=== PATIENT | female | born 1955 | race Caucasian/White ===

== ENCOUNTER 2022-04-23 12:28 | Emergency (ER) | payer MEDICARE, MEDICAID ==
[~2022-04-23] VITALS: Ht 160 cm; Wt 58.6 kg
[~2022-04-23 12:28] MED LIST: UNABLE TO OBTAIN
[2022-04-23 12:47] VITALS: BP 158/79
[2022-04-23 13:20] LABS: ALANINE AMINOTRANSFERASE 16 U/L (12-78); ALBUMIN 3.4 G/DL (3.4-5.0); ALBUMIN/GLOBULIN RATIO 0.9 (1.1-1.5); ALKALINE PHOSPHATASE 85 IU/L (46-116); ANION GAP 5 (8-16); ASPARTATE AMINO TRANSFERASE 14 U/L (10-37); BILIRUBIN,TOTAL 0.3 MG/DL (0.1-1.0); BLOOD UREA NITROGEN 26 MG/DL (7-18); BUN/CREATININE RATIO 22.6 (6.6-38.0); CALCIUM 8.9 MG/DL (8.5-10.1); CHLORIDE 102 MMOL/L (99-107); CREATININE 1.15 MG/DL (0.40-0.90); GLUCOSE 120 MG/DL (70-104); POTASSIUM 4.4 MMOL/L (3.5-5.1); SODIUM 140 MMOL/L (135-145); TOTAL PROTEIN 7.1 G/DL (6.4-8.2); eGFR 47 ML/MIN
[2022-04-23 13:31] LABS: BASOPHILS % (AUTO) 0.3 % (0-1); EOSINOPHILS # (AUTO) 0.1 X10'3 (0-0.9); HEMOGLOBIN 13.1 g/dl (12.0-16.0); LYMPHOCYTES # (AUTO) 1.2 X10'3 (1.1-4.8); LYMPHOCYTES % (AUTO) 16.8 % (21-51); MEAN CORPUSCULAR HEMOGLOBIN 29.4 PG (27.0-31.0); MEAN CORPUSCULAR HGB CONC 32.7 g/dL (33.0-36.5); MEAN CORPUSCULAR VOLUME 89.9 FL (78-98); MEAN PLATELET VOLUME 11.5 FL (7.4-10.4); MONOCYTES # (AUTO) 0.6 X10'3 (0-0.9); MONOCYTES % (AUTO) 8.7 % (2-12); NEUTROPHILS # (AUTO) 5.1 X10'3 (1.8-7.7); NEUTROPHILS % (AUTO) 72.2 % (42-75); PLATELET COUNT 161 X10'3 (140-440); RED BLOOD COUNT 4.45 X10'6 (4.20-5.60); RED CELL DISTRIBUTION WIDTH 14.7 % (11.5-14.5); WHITE BLOOD COUNT 7.1 X10'3 (4.5-11.0)
== END 2022-04-23 13:46 | disposition home or self-care (01) ==
LOC: ER 12:29
DX: I10 Essential (primary) hypertension (principal); J44.9 Chronic obstructive pulmonary disease, unspecified; M54.50 Low back pain, unspecified; F12.90 Cannabis use, unspecified, uncomplicated
CPT/HCPCS: 36415; 80053; 85025; 93005; 99284

== ENCOUNTER 2022-07-18 15:31 | Emergency (ER) | payer MEDICARE, MEDICAID ==
[~2022-07-18] VITALS: Ht 165.1 cm; Wt 59.1 kg
[2022-07-18 17:46] VITALS: BP 177/81
== END 2022-07-18 17:48 | disposition home or self-care (01) ==
LOC: ER 15:32
DX: I10 Essential (primary) hypertension (principal); I73.00 Raynaud's syndrome without gangrene; G89.29 Other chronic pain; J44.9 Chronic obstructive pulmonary disease, unspecified; F17.200 Nicotine dependence, unspecified, uncomplicated; F12.90 Cannabis use, unspecified, uncomplicated; Z90.49 Acquired absence of other specified parts of digestive tract; Z79.899 Other long term (current) drug therapy
CPT/HCPCS: 99281

== ENCOUNTER 2023-02-05 11:57 | Outpatient (CLI) | payer MEDICARE, MEDICAID | END 2023-02-05 23:59 | disposition home or self-care (01) | LOC: RAD 11:57 | PROVIDERS: ATTEND Physician Assistant | DX: F11.20 Opioid dependence, uncomplicated (principal); R00.1 Bradycardia, unspecified | CPT/HCPCS: 93005 ==

== ENCOUNTER 2023-02-09 19:59 | Inpatient (IN) | payer MEDICARE, MEDICAID ==
[~2023-02-09] VITALS: Ht 165.1 cm; Wt 46.8 kg
[2023-02-09] MEDS ORDERED: acetaminophen 325mg tablet PO ONE (20:40)
[2023-02-09] MEDS ORDERED: piperacillin/tazo 3.375gm/50ml 50 ML IV ONE (22:00)
[2023-02-09 22:01] LABS: BASOPHILS % (AUTO) 0.4 % (0-1); EOSINOPHILS % (AUTO) 0.3 % (0-6); HEMOGLOBIN 10.6 g/dl (12.0-16.0); LYMPHOCYTES # (AUTO) 0.5 X10'3 (1.1-4.8); LYMPHOCYTES % (AUTO) 4.2 % (21-51); MEAN CORPUSCULAR HEMOGLOBIN 28.9 PG (27.0-31.0); MEAN CORPUSCULAR HGB CONC 31.9 g/dL (33.0-36.5); MEAN CORPUSCULAR VOLUME 90.6 FL (78-98); MEAN PLATELET VOLUME 11.4 FL (7.4-10.4); MONOCYTES # (AUTO) 0.4 X10'3 (0-0.9); MONOCYTES % (AUTO) 3.4 % (2-12); NEUTROPHILS # (AUTO) 11.5 X10'3 (1.8-7.7); NEUTROPHILS % (AUTO) 91.7 % (42-75); PLATELET COUNT 182 X10'3 (140-440); RED BLOOD COUNT 3.65 X10'6 (4.20-5.60); RED CELL DISTRIBUTION WIDTH 15.6 % (11.5-14.5); WHITE BLOOD COUNT 12.5 X10'3 (4.5-11.0)
[2023-02-09 22:18] LABS: ALANINE AMINOTRANSFERASE 17 U/L (12-78); ALBUMIN/GLOBULIN RATIO 0.8 (1.1-1.5); ALKALINE PHOSPHATASE 66 IU/L (46-116); ANION GAP 6 (8-16); ASPARTATE AMINO TRANSFERASE 19 U/L (10-37); BILIRUBIN,TOTAL 0.5 MG/DL (0.1-1.0); BLOOD UREA NITROGEN 20 MG/DL (7-18); BUN/CREATININE RATIO 17.5 (10.0-20.0); CALCIUM 8.7 MG/DL (8.5-10.1); CHLORIDE 104 MMOL/L (99-107); CREATININE 1.14 MG/DL (0.40-0.90); GLUCOSE 97 MG/DL (70-104); POTASSIUM 3.4 MMOL/L (3.5-5.1); SODIUM 141 MMOL/L (135-145); TOTAL CARBON DIOXIDE 30.8 MMOL/L (24-32); TOTAL PROTEIN 6.6 G/DL (6.4-8.2); eCRCL 36 ML/MIN; eGFR 48 ML/MIN
[2023-02-09 22:26] LABS: PRO BRAIN NATRIURETIC PEPTIDE 3629 PG/ML (0-125)
[2023-02-09 22:52] LABS: BILIRUBIN,URINE NEGATIVE (Neg); CLARITY,URINE CLOUDY (Clear); COLOR,URINE YELLOW (Yellow); GLUCOSE, URINE NEGATIVE (Neg); KETONES,URINE TRACE mg/dl (Neg); LEUKOCYTE ESTERASE ,URINE TRACE (Neg); NITRITES, URINE POSITIVE (Neg); OCCULT BLOOD,URINE TRACE-INTACT (Neg); PH,URINE 6.5 (4.8-8.0); PROTEIN,URINE NEGATIVE (Neg); UROBILINOGEN,URINE 0.2 E.U/dL (0.2-1.0)
[2023-02-09 22:57] LABS: UA COLLECTION TYPE STRAIGHT CATH
[2023-02-09 22:58] LABS: BACTERIA,URINE 4+ /HPF (Neg); SQUAMOUS EPITHELIAL CELL,UR FEW /LPF (FEW)
[2023-02-09 22:59] LABS: RBC,URINE 0-2 /HPF (0-2); WBC,URINE 30-50 /HPF (0-4)
[2023-02-09] MEDS ORDERED: aspirin 81mg tab.chew PO ONE (23:00)
[2023-02-09] MEDS ORDERED: LOSA1TAB36 PO (23:20)
[2023-02-09 23:27] LABS: URINE AMPHETAMINE SCREEN POSITIVE (Neg); URINE BARBITUATE SCREEN NEGATIVE (Neg); URINE BENZODIAZEPINES SCREEN NEGATIVE (Neg); URINE CANNABINOID SCREEN POSITIVE (Neg); URINE COCAINE SCREEN NEGATIVE (Neg); URINE METHADONE SCREEN POSITIVE (Neg); URINE OPIATE SCREEN NEGATIVE (Neg); URINE PHENCYCLIDINE SCREEN NEGATIVE (Neg)
[2023-02-10] MEDS ORDERED: acetaminophen 325mg tablet PO PRN (00:50)
[2023-02-10] MEDS ORDERED: magnesium Cl slow-release 64mg tablet PO PRN (00:50)
[2023-02-10] MEDS ORDERED: magnesium hydroxide 30ml (MOM) UD suspension PO PRN (00:50)
[2023-02-10] MEDS ORDERED: potassium Cl 40MEQ/1/2NS 520ml 520 ML IV PRN (00:50)
[2023-02-10] MEDS ORDERED: magnesium 2GM in 50ml NS 50 ML IV PRN (00:50)
[2023-02-10] MEDS ORDERED: ondansetron/PF 4mg/2ml inj IV PRN (00:50)
[2023-02-10] MEDS ORDERED: magnesium 4gm in 100ml NS 100 ML IV PRN (00:50)
[2023-02-10] MEDS ORDERED: PERFLUTREN PROTEIN-A MICROSPHR (Optison) 0.22 MG/ML 3ML VIAL IV ONE (00:50)
[2023-02-10] MEDS ORDERED: mag hydrox/Alum hydrox/simeth 30ml oral suspension PO PRN (00:50)
[2023-02-10] MEDS ORDERED: potassium Cl 20 mEq SR tablet PO PRN ×2 (00:50)
[2023-02-10] MEDS ORDERED: vancomycin/NS 1 GM ADD-VANTAGE 250 ML X 1 DOSE IV SCH (01:13)
[2023-02-10] MEDS: normal saline 1000ml 1,000 ML IV SCH ×3 (02:31→20:42)
--- NOTE | 2023-02-10 02:32 | NUR ---
OPTISON NOT ADMINISTERED IN ER
[2023-02-10] MEDS: HYDROchlorothiazide 12.5mg capsule PO SCH (07:01)
[2023-02-10] MEDS: heparin, porcine 5000 units/ml vial SQ SCH ×2 (07:03→20:43)
[2023-02-10] MEDS: docusate sod 100mg capsule PO SCH ×2 (07:03→20:00)
[2023-02-10] MEDS: HYDROcodone/acetaminophen 5mg/325mg tablet PO PRN ×3 (07:04→21:43)
[2023-02-10] MEDS: CefTRIAXone/D5W-Rocephin 1gm 50 ML IV SCH (07:05)
[2023-02-10] MEDS: K and/or MAG REPLACEMENT MC SCH ×2 (07:06→20:44)
--- NOTE | 2023-02-10 07:06 | NUR ---
Patient refused 0800 colace after scanning medication
[2023-02-10 07:44] LABS: MAGNESIUM 1.5 MG/DL (1.5-2.4); POTASSIUM 3.1 MMOL/L (3.5-5.1); THYROID STIMULATING HORMONE 0.43 ulU/ml (0.34-4.50)
[2023-02-10] MEDS: losartan 50mg tablet PO SCH (07:57)
--- NOTE | 2023-02-10 10:03 | NUR ---
Received order for consult. Went to meet with patient and patient with woundcare. I will follow back up.
--- NOTE | 2023-02-10 10:56 | NUR ---
Page Dr. Linares for home dose of methadone 35mg
[2023-02-10] MEDS ORDERED: methadone 5mg tablet PO ONE (11:00)
[2023-02-10] MEDS ORDERED: methadone 10mg tablet PO ONE (11:00)
--- NOTE | 2023-02-10 14:47 | NUR ---
PRESSURE ULCER EDUCATION: DEFINITION: A pressure ulcer is an area of skin that breaks down when you stay in one position too long. The constant pressure against the skin reduces the blood flow to that area and the affected tissue dies. CAUSES: "Being bedridden or in a wheelchair "Fragile skin "Having a chronic condition, such as diabetes or vascular disease "Inability to move certain parts of your body without assistance "Older age "Incontinence of urine or stool SYMPTOMS: "A reddened area that DOES NOT turn white when pressed on - this can be the beginning of a pressure ulcer "A blister, deep sore or a crater - these can be advanced pressure ulcers FIRST AID: "Relieve the pressure on this area "Keep the area clean and dry "Call your primary doctor if you see any of the above symptoms "DO NOT massage the area "DO NOT use a donut shaped or ring shaped pillow- these actually interfere with the blood flow and cause complications PREVENTION: "Check for pressure ulcers everyday "Change position at least every two hours to relieve pressure "Use items that help relieve pressure- pillows, sheepskin, foam padding, and powders. "Keep skin clean and dry "Eat healthy well balanced meals "Exercise daily IF YOU SEE ANY OF THESE SYMPTOMS WHILE IN THE HOSPITAL - TELL YOUR NURSE IMMEDIATELY. IF YOU SEE ANY OF THESE SYMPTOMS WHILE AT HOME OR HAVE ANY QUESTIONS OR CONCERNS ABOUT PRESSURE ULCERS - CALL YOUR PRIMARY DOCTOR IMMEDIATELY. Addendum: 02/10/23 at 1447 by Jennifer Maravilla LVN Amended: Links added.
[2023-02-10 17:00] VITALS: RESP 14
[2023-02-10 18:30] VITALS: BP 140/50; PULSE 61; RESP 18; TEMP 97.1; O2SAT 92
--- NOTE | 2023-02-10 18:36 | NUR ---
Patient in room PCU 3014. I have received report from Jailyn and had the opportunity to ask questions and assume patient care.
--- NOTE | 2023-02-10 18:37 | NUR ---
Problems reprioritized. Patient report given, questions answered & plan of care reviewed with KEN De.
[2023-02-10 20:00] VITALS: RESP 14; O2SAT 98
[2023-02-10 21:47] VITALS: BP 141/65; PULSE 63; RESP 16; TEMP 98.3; O2SAT 96
[2023-02-11] VITALS (8 sets, daily range): BP systolic 106–167; BP diastolic 56–79; PULSE 51–66; RESP 16–20; TEMP 96.9–98.3; O2SAT 95–99
[2023-02-11] MEDS: HYDROcodone/acetaminophen 5mg/325mg tablet PO PRN ×4 (01:50→20:52)
[2023-02-11] MEDS ORDERED: VANCOMYCIN 750MG IV in NS 250 ML IV SCH (02:00)
[2023-02-11 06:20] LABS: BASOPHILS % (AUTO) 0.2 % (0-1); EOSINOPHILS # (AUTO) 0.2 X10'3 (0-0.9); EOSINOPHILS % (AUTO) 1.8 % (0-6); HEMATOCRIT 32.2 % (35.0-45.0); HEMOGLOBIN 10.9 g/dl (12.0-16.0); LYMPHOCYTES # (AUTO) 1.1 X10'3 (1.1-4.8); LYMPHOCYTES % (AUTO) 12.7 % (21-51); MEAN CORPUSCULAR HEMOGLOBIN 30.2 PG (27.0-31.0); MEAN CORPUSCULAR HGB CONC 33.7 g/dL (33.0-36.5); MEAN CORPUSCULAR VOLUME 89.7 FL (78-98); MEAN PLATELET VOLUME 12.2 FL (7.4-10.4); MONOCYTES # (AUTO) 0.5 X10'3 (0-0.9); MONOCYTES % (AUTO) 5.6 % (2-12); NEUTROPHILS # (AUTO) 6.7 X10'3 (1.8-7.7); NEUTROPHILS % (AUTO) 79.7 % (42-75); PLATELET COUNT 161 X10'3 (140-440); RED BLOOD COUNT 3.59 X10'6 (4.20-5.60); RED CELL DISTRIBUTION WIDTH 15.6 % (11.5-14.5); WHITE BLOOD COUNT 8.4 X10'3 (4.5-11.0)
--- NOTE | 2023-02-11 06:26 | NUR ---
Problems reprioritized. Patient report given, questions answered & plan of care reviewed with Dona.
[2023-02-11 06:29] LABS: ALBUMIN 2.5 G/DL (3.4-5.0); ALBUMIN/GLOBULIN RATIO 0.7 (1.1-1.5); ALKALINE PHOSPHATASE 62 IU/L (46-116); ANION GAP 6 (8-16); ASPARTATE AMINO TRANSFERASE 16 U/L (10-37); BILIRUBIN,TOTAL 0.3 MG/DL (0.1-1.0); BLOOD UREA NITROGEN 20 MG/DL (7-18); BUN/CREATININE RATIO 21.5 (10.0-20.0); CALCIUM 8.6 MG/DL (8.5-10.1); CHLORIDE 105 MMOL/L (99-107); CREATININE 0.93 MG/DL (0.40-0.90); GLUCOSE 101 MG/DL (70-104); MAGNESIUM 1.5 MG/DL (1.5-2.4); POTASSIUM 3.5 MMOL/L (3.5-5.1); SODIUM 138 MMOL/L (135-145); TOTAL CARBON DIOXIDE 26.8 MMOL/L (24-32); TOTAL PROTEIN 6.3 G/DL (6.4-8.2); eCRCL 44 ML/MIN; eGFR 60 ML/MIN
--- NOTE | 2023-02-11 06:46 | NUR ---
Patient in room PCU 3014. I have received report from Santino and had the opportunity to ask questions and assume patient care.
[2023-02-11 07:08] LABS: ALANINE AMINOTRANSFERASE 10 U/L (12-78)
--- NOTE | 2023-02-11 07:32 | NUR ---
Sent to PICC nurse -5588Y Lidya Rosenthal needs a new IV placed. Hard stick.
[2023-02-11] MEDS: losartan 50mg tablet PO SCH (07:36)
[2023-02-11] MEDS: heparin, porcine 5000 units/ml vial SQ SCH ×2 (07:38→20:53)
[2023-02-11] MEDS: HYDROchlorothiazide 12.5mg capsule PO SCH (07:39)
[2023-02-11] MEDS: docusate sod 100mg capsule PO SCH ×2 (07:40→20:00)
[2023-02-11] MEDS: K and/or MAG REPLACEMENT MC SCH ×2 (07:40→20:47)
--- NOTE | 2023-02-11 08:07 | NUR ---
Sent to Dr Araujo - 6062H Lidya Rosenthal Pt at [facility] for MAT and had a one time methadone dose 02/10 here. Can she have a dose today? Dona U [phone]
[2023-02-11 08:40] LABS: LARGE PLATELETS FEW; PLATELET ESTIMATE NORMAL
[2023-02-11] MEDS: methadone 10mg tablet PO SCH (09:29)
[2023-02-11] MEDS: methadone 5mg tablet PO SCH (09:30)
[2023-02-11 09:55] LABS: C-REACTIVE PROTEIN 11.45 MG/DL (0.0-0.5)
[2023-02-11] MEDS: normal saline 1000ml 1,000 ML IV SCH ×2 (11:00→16:35)
[2023-02-11] MEDS: CefTRIAXone/D5W-Rocephin 1gm 50 ML IV SCH (12:24)
--- NOTE | 2023-02-11 13:28 | NUR ---
PAGER ID: [phone] MESSAGE: [id number] Lidya Rosenthal Medical Record from [facility] is here. During her stay Jan 20 she tested pos for C-diff. Would you like a stool sample? Dona [facility] [phone]
[2023-02-11] MEDS ORDERED: ondansetron 4mg rapidly disintigrating tab PO PRN (13:40)
[2023-02-11] MEDS ORDERED: methadone 10mg tablet PO SCH (16:00)
[2023-02-11] MEDS ORDERED: methadone 5mg tablet PO SCH (16:00)
--- NOTE | 2023-02-11 18:16 | NUR ---
Problems reprioritized. Patient report given, questions answered & plan of care reviewed with
--- NOTE | 2023-02-11 18:45 | NUR ---
Patient in room PCU 3021. I have received report from Dona and had the opportunity to ask questions and assume patient care.
[2023-02-12] MEDS: HYDROcodone/acetaminophen 5mg/325mg tablet PO PRN ×2 (01:43→05:54)
[2023-02-12] MEDS: normal saline 1000ml 1,000 ML IV SCH (01:48)
[2023-02-12 01:49] VITALS: BP 149/86; PULSE 54; RESP 16; TEMP 97.7; O2SAT 97
[2023-02-12] MEDS ORDERED: vancomycin/NS 1 GM ADD-VANTAGE 250 ML IV SCH (02:00)
--- NOTE | 2023-02-12 06:21 | NUR ---
Problems reprioritized. Patient report given, questions answered & plan of care reviewed with
[2023-02-12 07:00] VITALS: BP 170/89; PULSE 60; RESP 16; TEMP 97.5; O2SAT 98
[2023-02-12] MEDS: heparin, porcine 5000 units/ml vial SQ SCH (07:24)
[2023-02-12] MEDS: HYDROchlorothiazide 12.5mg capsule PO SCH (07:24)
[2023-02-12] MEDS: losartan 50mg tablet PO SCH (07:25)
[2023-02-12] MEDS: methadone 5mg tablet PO SCH (07:26)
[2023-02-12] MEDS: methadone 10mg tablet PO SCH (07:26)
[2023-02-12] MEDS: docusate sod 100mg capsule PO SCH (07:27)
[2023-02-12] MEDS: K and/or MAG REPLACEMENT MC SCH (07:27)
[2023-02-12 07:34] LABS: RED CELL DISTRIBUTION WIDTH 15.5 % (11.5-14.5)
[2023-02-12 07:36] LABS: BASOPHILS % (AUTO) 0.5 % (0-1); EOSINOPHILS # (AUTO) 0.2 X10'3 (0-0.9); EOSINOPHILS % (AUTO) 3.8 % (0-6); HEMATOCRIT 39.3 % (35.0-45.0); LYMPHOCYTES # (AUTO) 1.4 X10'3 (1.1-4.8); LYMPHOCYTES % (AUTO) 21.1 % (21-51); MEAN CORPUSCULAR HGB CONC 33.1 g/dL (33.0-36.5); MEAN CORPUSCULAR VOLUME 90.7 FL (78-98); MEAN PLATELET VOLUME 11.3 FL (7.4-10.4); MONOCYTES # (AUTO) 0.4 X10'3 (0-0.9); MONOCYTES % (AUTO) 6.8 % (2-12); NEUTROPHILS # (AUTO) 4.5 X10'3 (1.8-7.7); NEUTROPHILS % (AUTO) 67.8 % (42-75); PLATELET COUNT 120 X10'3 (140-440); RED BLOOD COUNT 4.33 X10'6 (4.20-5.60); WHITE BLOOD COUNT 6.6 X10'3 (4.5-11.0)
[2023-02-12 08:00] VITALS: RESP 18; O2SAT 95
[2023-02-12 08:04] LABS: ALANINE AMINOTRANSFERASE 14 U/L (12-78); ALBUMIN/GLOBULIN RATIO 0.7 (1.1-1.5); ALKALINE PHOSPHATASE 70 IU/L (46-116); ANION GAP 12 (8-16); ASPARTATE AMINO TRANSFERASE 18 U/L (10-37); BILIRUBIN,TOTAL 0.2 MG/DL (0.1-1.0); BLOOD UREA NITROGEN 16 MG/DL (7-18); BUN/CREATININE RATIO 17.2 (10.0-20.0); CALCIUM 9.2 MG/DL (8.5-10.1); CHLORIDE 103 MMOL/L (99-107); CREATININE 0.93 MG/DL (0.40-0.90); GLUCOSE 76 MG/DL (70-104); MAGNESIUM 1.3 MG/DL (1.5-2.4); POTASSIUM 3.7 MMOL/L (3.5-5.1); SODIUM 140 MMOL/L (135-145); TOTAL CARBON DIOXIDE 25.3 MMOL/L (24-32); TOTAL PROTEIN 7.4 G/DL (6.4-8.2); eCRCL 44 ML/MIN; eGFR 60 ML/MIN
[2023-02-12] MEDS: CefTRIAXone/D5W-Rocephin 1gm 50 ML IV SCH (08:30)
[2023-02-12] MEDS ORDERED: FOSFOMYCIN TROMETHAMINE 3 GM PACKET PO ONE (10:30)
[2023-02-12] MEDS ORDERED: CEPH500C2 PO (11:15)
[2023-02-12] MEDS ORDERED: DOXY-243 PO (11:15)
[2023-02-12 11:30] VITALS: BP 132/58; PULSE 59; RESP 15; TEMP 98.2; O2SAT 95
--- NOTE | 2023-02-12 12:00 | NUR ---
Met with patient in regards to substance use and to see if patient was interested in resources for treatment options. Patient is currently going to [facility] and on Methadone. Patient has cut back on using, and will continue doing the program through [facility] to stop completely.
[2023-02-15] MEDS ORDERED: VANCOMYCIN LEVEL IV ONE (01:30)
== END 2023-02-12 15:49 | disposition home or self-care (01) | DRG 602 ==
LOC: ER 20:00 → ED HOLD 02-10 00:52 → PCU 3S 02-10 15:57
PROVIDERS: ADMIT Internal Medicine; ATTEND Family Medicine
DX: L03.116 Cellulitis of left lower limb (principal); I21.A1 Myocardial infarction type 2; N17.0 Acute kidney failure with tubular necrosis; N39.0 Urinary tract infection, site not specified; F11.20 Opioid dependence, uncomplicated; I47.20 Ventricular tachycardia, unspecified; B18.2 Chronic viral hepatitis C; F15.90 Other stimulant use, unspecified, uncomplicated; F17.200 Nicotine dependence, unspecified, uncomplicated; Z20.822 Contact with and (suspected) exposure to COVID-19; G89.4 Chronic pain syndrome; H51.8 Other specified disorders of binocular movement; F19.90 Other psychoactive substance use, unspecified, uncomplicated; I08.0 Rheumatic disorders of both mitral and aortic valves; E87.6 Hypokalemia; I10 Essential (primary) hypertension; J44.9 Chronic obstructive pulmonary disease, unspecified; B96.20 Unspecified Escherichia coli [E. coli] as the cause of diseases classified elsewhere; Z53.29 Procedure and treatment not carried out because of patient's decision for other reasons; Z85.3 Personal history of malignant neoplasm of breast
CPT/HCPCS: 36415; 71045; 80053; 80305; 81001; 82140; 83605; 83735; 83880; 84132; 84145; 84443; 84484; 85008; 85025; 85651; 86140; 87040; 87077; 87081; 87088; 87186; 87811; 93005; 93306; 96365; 97161; 97530; 99285; A4615; A6250; A6258; C1758; G0378; J0696; J1644; J2543; J3370; J7030; J7050

== ENCOUNTER 2023-04-15 12:53 | Emergency (ER) | payer MEDICARE, MEDICAID ==
[~2023-04-15] VITALS: Ht 165.1 cm; Wt 59.1 kg
[~2023-04-15 12:53] MED LIST changes: +LOSA1TAB36 PO; -UNABLE TO OBTAIN
[2023-04-15 13:05] VITALS: BP 138/69; PULSE 84; TEMP 96.9; O2SAT 100
[2023-04-15 13:30] VITALS: RESP 16
[2023-04-15 14:21] LABS: BILIRUBIN,URINE NEGATIVE (Neg); CLARITY,URINE CLOUDY (Clear); COLOR,URINE YELLOW (Yellow); GLUCOSE, URINE NEGATIVE (Neg); KETONES,URINE NEGATIVE (Neg); LEUKOCYTE ESTERASE ,URINE NEGATIVE (Neg); NITRITES, URINE NEGATIVE (Neg); OCCULT BLOOD,URINE NEGATIVE (Neg); PROTEIN,URINE NEGATIVE (Neg); UROBILINOGEN,URINE 0.2 E.U/dL (0.2-1.0)
[2023-04-15 14:22] LABS: UA COLLECTION TYPE VOIDED
[2023-04-15 14:28] LABS: BACTERIA,URINE 2+ /HPF (Neg); RBC,URINE 0-2 /HPF (0-2); SQUAMOUS EPITHELIAL CELL,UR MANY /LPF (FEW); WBC,URINE 0-4 /HPF (0-4)
[2023-04-15 14:36] LABS: URINE AMPHETAMINE SCREEN POSITIVE (Neg); URINE BARBITUATE SCREEN NEGATIVE (Neg); URINE BENZODIAZEPINES SCREEN NEGATIVE (Neg); URINE CANNABINOID SCREEN POSITIVE (Neg); URINE COCAINE SCREEN NEGATIVE (Neg); URINE METHADONE SCREEN NEGATIVE (Neg); URINE OPIATE SCREEN NEGATIVE (Neg); URINE PHENCYCLIDINE SCREEN NEGATIVE (Neg)
[2023-04-15 15:14] LABS: INR 0.9 INR; PROTHROMBIN TIME 10.2 SECONDS (9.0-12.0)
[2023-04-15 15:20] LABS: ALANINE AMINOTRANSFERASE 23 U/L (12-78); ALBUMIN 3.8 G/DL (3.4-5.0); ALBUMIN/GLOBULIN RATIO 0.8 (1.1-1.5); ALKALINE PHOSPHATASE 96 IU/L (46-116); ANION GAP 10 (8-16); ASPARTATE AMINO TRANSFERASE 28 U/L (10-37); BILIRUBIN,TOTAL 0.2 MG/DL (0.1-1.0); BLOOD UREA NITROGEN 44 MG/DL (7-18); BUN/CREATININE RATIO 28.9 (10.0-20.0); CALCIUM 9.8 MG/DL (8.5-10.1); CHLORIDE 99 MMOL/L (99-107); CREATININE 1.52 MG/DL (0.40-0.90); GLUCOSE 108 MG/DL (70-104); POTASSIUM 3.5 MMOL/L (3.5-5.1); SODIUM 137 MMOL/L (135-145); TOTAL CARBON DIOXIDE 27.9 MMOL/L (24-32); TOTAL PROTEIN 8.4 G/DL (6.4-8.2); eCRCL 33 ML/MIN; eGFR 34 ML/MIN
[2023-04-15 15:21] LABS: ETHANOL < 10 MG/DL (<10)
[2023-04-15 15:38] LABS: BASOPHILS % (AUTO) 0.4 % (0-1); EOSINOPHILS # (AUTO) 0.1 X10'3 (0-0.9); EOSINOPHILS % (AUTO) 1.5 % (0-6); HEMATOCRIT 37.7 % (35.0-45.0); HEMOGLOBIN 12.5 g/dl (12.0-16.0); LYMPHOCYTES # (AUTO) 1.3 X10'3 (1.1-4.8); LYMPHOCYTES % (AUTO) 17.3 % (21-51); MEAN CORPUSCULAR HGB CONC 33.2 g/dL (33.0-36.5); MEAN CORPUSCULAR VOLUME 90.4 FL (78-98); MEAN PLATELET VOLUME 10.9 FL (7.4-10.4); MONOCYTES # (AUTO) 0.5 X10'3 (0-0.9); MONOCYTES % (AUTO) 6.7 % (2-12); NEUTROPHILS # (AUTO) 5.7 X10'3 (1.8-7.7); NEUTROPHILS % (AUTO) 74.1 % (42-75); PLATELET COUNT 259 X10'3 (140-440); RED BLOOD COUNT 4.17 X10'6 (4.20-5.60); RED CELL DISTRIBUTION WIDTH 14.1 % (11.5-14.5); WHITE BLOOD COUNT 7.7 X10'3 (4.5-11.0)
--- NOTE | 2023-04-15 17:16 | NUR ---
Pt no answer x [phone]
[2023-04-15] MEDS ORDERED: normal saline 1000ml 1,000 ML IV ONE (18:10)
== END 2023-04-16 01:13 | disposition left against medical advice (07) ==
LOC: ER 12:54
DX: N39.0 Urinary tract infection, site not specified (principal); Z53.21 Procedure and treatment not carried out due to patient leaving prior to being seen by health care provider
CPT/HCPCS: 36415; 80053; 80305; 80320; 81001; 82948; 85025; 85610; 99281

== ENCOUNTER 2023-04-28 19:54 | Inpatient (IN) | payer MEDICARE, MEDICAID ==
[~2023-04-28] VITALS: Ht 165.1 cm; Wt 60.1 kg
[2023-04-28] MEDS ORDERED: iohexol 350MG/ML 100ml bottle IV ONE ×2 (20:13→20:58)
[2023-04-28 21:55] LABS: BASOPHILS # (AUTO) 0.1 X10'3 (0-0.2); BASOPHILS % (AUTO) 0.5 % (0-1); EOSINOPHILS % (AUTO) 0.1 % (0-6); HEMATOCRIT 38.7 % (35.0-45.0); HEMOGLOBIN 12.7 g/dl (12.0-16.0); LYMPHOCYTES # (AUTO) 1.5 X10'3 (1.1-4.8); LYMPHOCYTES % (AUTO) 12.2 % (21-51); MEAN CORPUSCULAR HEMOGLOBIN 29.7 PG (27.0-31.0); MEAN CORPUSCULAR HGB CONC 32.9 g/dL (33.0-36.5); MEAN CORPUSCULAR VOLUME 90.4 FL (78-98); MEAN PLATELET VOLUME 11.5 FL (7.4-10.4); MONOCYTES # (AUTO) 0.5 X10'3 (0-0.9); MONOCYTES % (AUTO) 4.4 % (2-12); NEUTROPHILS # (AUTO) 10.3 X10'3 (1.8-7.7); NEUTROPHILS % (AUTO) 82.8 % (42-75); PLATELET COUNT 211 X10'3 (140-440); RED BLOOD COUNT 4.28 X10'6 (4.20-5.60); RED CELL DISTRIBUTION WIDTH 14.4 % (11.5-14.5); WHITE BLOOD COUNT 12.4 X10'3 (4.5-11.0)
--- NOTE | 2023-04-28 22:04 | NUR ---
BELEN WHITE CALLED FOR UPDATES:
[2023-04-28] MEDS: aspirin 325mg tablet PO ONE ×2 (22:18→22:23)
--- NOTE | 2023-04-28 22:23 | NUR ---
ATTEMPTED TO GIVE PT PO MEDICATION. pT UNABLE TO SWALLOW THIN LIQUIDS. po MED NOT GIVEN. MD AWARE.
[2023-04-28 22:27] LABS: ALANINE AMINOTRANSFERASE 18 U/L (12-78); ALBUMIN 3.4 G/DL (3.4-5.0); ALBUMIN/GLOBULIN RATIO 0.9 (1.1-1.5); ALKALINE PHOSPHATASE 67 IU/L (46-116); ANION GAP 5 (8-16); ASPARTATE AMINO TRANSFERASE 19 U/L (10-37); BILIRUBIN,TOTAL 0.4 MG/DL (0.1-1.0); BLOOD UREA NITROGEN 29 MG/DL (7-18); BUN/CREATININE RATIO 28.2 (10.0-20.0); CALCIUM 9.1 MG/DL (8.5-10.1); CHLORIDE 102 MMOL/L (99-107); CREATININE 1.03 MG/DL (0.40-0.90); GLUCOSE 99 MG/DL (70-104); POTASSIUM 3.7 MMOL/L (3.5-5.1); SODIUM 138 MMOL/L (135-145); TOTAL CARBON DIOXIDE 31.4 MMOL/L (24-32); TOTAL PROTEIN 7.2 G/DL (6.4-8.2); eCRCL 48 ML/MIN; eGFR 54 ML/MIN
[2023-04-28 22:29] LABS: PLATELET ESTIMATE NORMAL
[2023-04-28 22:31] LABS: LARGE PLATELETS FEW
[2023-04-28 22:33] LABS: ETHANOL < 10 MG/DL (<10); PRO BRAIN NATRIURETIC PEPTIDE 776 PG/ML (0-125)
[2023-04-29] MEDS ORDERED: diphenhydrAMINE 50 mg/ml inj IV PRN (00:10)
[2023-04-29] MEDS ORDERED: ondansetron 4mg rapidly disintigrating tab PO PRN (00:10)
[2023-04-29] MEDS ORDERED: diphenhydrAMINE 25mg capsule PO PRN (00:10)
[2023-04-29] MEDS ORDERED: mag hydrox/Alum hydrox/simeth 30ml oral suspension PO PRN (00:10)
[2023-04-29] MEDS ORDERED: ondansetron/PF 4mg/2ml inj IV PRN (00:10)
[2023-04-29] MEDS ORDERED: acetaminophen 325mg tablet PO PRN ×2 (00:10)
[2023-04-29] MEDS ORDERED: bisacodyl 10mg suppository rectal RC PRN (00:10)
[2023-04-29] MEDS ORDERED: magnesium hydroxide 30ml (MOM) UD suspension PO PRN (00:10)
[2023-04-29] MEDS ORDERED: acetaminophen 650mg rectal suppository RC PRN (00:10)
[2023-04-29] MEDS: normal saline 1000ml 1,000 ML IV SCH ×2 (00:41→15:58)
[2023-04-29 00:46] LABS: APTT 24 SECONDS (22-32); PROTHROMBIN TIME 10.4 SECONDS (9.0-12.0)
[2023-04-29 02:04] LABS: BILIRUBIN,URINE NEGATIVE (Neg); CLARITY,URINE SLIGHTLY CLOUDY (Clear); COLOR,URINE YELLOW (Yellow); GLUCOSE, URINE NEGATIVE (Neg); KETONES,URINE NEGATIVE (Neg); LEUKOCYTE ESTERASE ,URINE NEGATIVE (Neg); NITRITES, URINE NEGATIVE (Neg); OCCULT BLOOD,URINE NEGATIVE (Neg); PROTEIN,URINE NEGATIVE (Neg); UROBILINOGEN,URINE 0.2 E.U/dL (0.2-1.0)
[2023-04-29 02:08] LABS: UA COLLECTION TYPE NON-SPECIFIED
[2023-04-29 02:15] LABS: BACTERIA,URINE 1+ /HPF (Neg); RBC,URINE 0-2 /HPF (0-2); WBC,URINE 0-4 /HPF (0-4)
[2023-04-29 02:16] LABS: MUCUS STRANDS FEW /LPF (Neg); SQUAMOUS EPITHELIAL CELL,UR MODERATE /LPF (FEW)
[2023-04-29 02:17] LABS: URINE AMPHETAMINE SCREEN POSITIVE (Neg); URINE BARBITUATE SCREEN NEGATIVE (Neg); URINE BENZODIAZEPINES SCREEN NEGATIVE (Neg); URINE CANNABINOID SCREEN POSITIVE (Neg); URINE COCAINE SCREEN NEGATIVE (Neg); URINE METHADONE SCREEN NEGATIVE (Neg); URINE OPIATE SCREEN NEGATIVE (Neg); URINE PHENCYCLIDINE SCREEN NEGATIVE (Neg)
[2023-04-29 02:53] LABS: PHOSPHORUS 3.8 MG/DL (2.3-4.5)
[2023-04-29] MEDS ORDERED: pantoprazole 40mg Tablet.DR PO SCH (07:30)
[2023-04-29] MEDS: atorvastatin 20mg tablet PO SCH (08:00)
[2023-04-29] MEDS: docusate sod 100mg capsule PO SCH ×2 (08:00→20:00)
[2023-04-29] MEDS ORDERED: pantoprazole 40 MG vial IV SCH (08:00)
[2023-04-29] MEDS: nicotine 21mg patch - 24 hr TD SCH (08:00)
--- NOTE | 2023-04-29 08:04 | NUR ---
Pt has all po meds ordered yet failed swallow test during weight shifter. This RN phoned Dr. Sellers and no answer. Message sent via intranet.
[2023-04-29] MEDS: aspirin 81mg tab.chew PO SCH (08:30)
--- NOTE | 2023-04-29 08:43 | NUR ---
md GONZALEZ ORDERED PROTONIX 40 MG/ IV Q DAY, SKIP REST OF PO MEDS
--- NOTE | 2023-04-29 09:38 | NUR ---
Pharmacy will bring pantoprazol when ready per pharmacy
[2023-04-29] MEDS ORDERED: pantoprazole 40MG/NS 100ML BAG 100 ML IV ONE (10:02)
--- NOTE | 2023-04-29 12:56 | NUR ---
CALLED RESIDENT REQUESTING SPEECH THERAPY FOR SWALLOW EVAL. MD STATED THEY WILL ENTER THE ORDER.
[2023-04-29] MEDS: morphine 2 MG/ML inj. syringe IV PRN ×2 (13:24→18:54)
[2023-04-29] MEDS ORDERED: racepinephrine 11.25mg/0.5ml nebule IH SCH (14:00)
--- NOTE | 2023-04-29 14:17 | NUR ---
SPEECH THERAPY PAGED REGARDING PT NEED FOR SWALLOW EVAL PRIOR TO MRI.
[2023-04-29] MEDS ORDERED: polyvinyl alcohol ophthalmic drops 15ml bottle LEFTEYE PRN (18:10)
--- NOTE | 2023-04-29 19:30 | NUR ---
Report received from Keira RN-ED, awaiting patient arrival to floor
[2023-04-29 20:00] VITALS: BP 147/91; PULSE 81; RESP 18; TEMP 98.7; O2SAT 94
[2023-04-29 22:00] VITALS: BP 134/86; PULSE 78; RESP 17; TEMP 98.7; O2SAT 90
[2023-04-29] MEDS: methylPREDNISolone sod succ/PF 40mg inj. IV SCH (23:20)
[2023-04-30] VITALS (13 sets, daily range): BP systolic 95–139; BP diastolic 64–89; PULSE 71–94; RESP 14–22; TEMP 97.6–98.9; O2SAT 89–100
[2023-04-30] MEDS: morphine 2 MG/ML inj. syringe IV PRN ×2 (02:36→10:45)
[2023-04-30] MEDS: normal saline 1000ml 1,000 ML IV SCH ×3 (02:41→18:39)
--- NOTE | 2023-04-30 06:45 | NUR ---
report to Harriet ROGERS
--- NOTE | 2023-04-30 06:57 | NUR ---
Patient states no vision in left eye. Addendum: 04/30/23 at 0752 by Santino ROONEY Amended: Links added.
--- NOTE | 2023-04-30 07:01 | NUR ---
Patient states no vision in left eye
[2023-04-30] MEDS: docusate sod 100mg capsule PO SCH ×2 (08:00→20:00)
[2023-04-30] MEDS ORDERED: pantoprazole 40 MG vial IV SCH (08:00)
[2023-04-30] MEDS ORDERED: albuterol 2.5 MG/3 ML nebule NEB PRN (08:40)
[2023-04-30] MEDS ORDERED: racepinephrine 11.25mg/0.5ml nebule IH PRN (08:40)
[2023-04-30] MEDS: budesonide 0.5mg/2ml UD nebule IH SCH (08:51)
[2023-04-30] MEDS: ipratropium/albuterol 3ml nebule NEB PRN (08:53)
[2023-04-30] MEDS: nicotine 21mg patch - 24 hr TD SCH (10:31)
[2023-04-30] MEDS: atorvastatin 20mg tablet PO SCH (10:31)
[2023-04-30] MEDS: aspirin 81mg tab.chew PO SCH (10:31)
[2023-04-30] MEDS: methylPREDNISolone sod succ/PF 40mg inj. IV SCH ×3 (10:35→21:02)
[2023-04-30 13:13] LABS: BASOPHILS % (AUTO) 0.2 % (0-1); EOSINOPHILS % (AUTO) 0.1 % (0-6); HEMATOCRIT 44.1 % (35.0-45.0); HEMOGLOBIN 14.4 g/dl (12.0-16.0); LYMPHOCYTES # (AUTO) 0.6 X10'3 (1.1-4.8); LYMPHOCYTES % (AUTO) 5.4 % (21-51); MEAN CORPUSCULAR HGB CONC 32.6 g/dL (33.0-36.5); MEAN CORPUSCULAR VOLUME 92.1 FL (78-98); MEAN PLATELET VOLUME 10.8 FL (7.4-10.4); MONOCYTES # (AUTO) 0.2 X10'3 (0-0.9); MONOCYTES % (AUTO) 1.9 % (2-12); NEUTROPHILS # (AUTO) 10.4 X10'3 (1.8-7.7); NEUTROPHILS % (AUTO) 92.4 % (42-75); PLATELET COUNT 115 X10'3 (140-440); RED BLOOD COUNT 4.79 X10'6 (4.20-5.60); RED CELL DISTRIBUTION WIDTH 14.3 % (11.5-14.5); WHITE BLOOD COUNT 11.2 X10'3 (4.5-11.0)
[2023-04-30] MEDS: HYDROcodone/acetaminophen 5mg/325mg tablet PO PRN ×2 (14:01→20:09)
[2023-04-30 14:22] LABS: ALANINE AMINOTRANSFERASE 18 U/L (12-78); ALBUMIN 3.2 G/DL (3.4-5.0); ALBUMIN/GLOBULIN RATIO 0.8 (1.1-1.5); ALKALINE PHOSPHATASE 76 IU/L (46-116); ANION GAP 9 (8-16); ASPARTATE AMINO TRANSFERASE 18 U/L (10-37); BILIRUBIN,TOTAL 0.4 MG/DL (0.1-1.0); BLOOD UREA NITROGEN 27 MG/DL (7-18); BUN/CREATININE RATIO 24.8 (10.0-20.0); CALCIUM 8.3 MG/DL (8.5-10.1); CHLORIDE 100 MMOL/L (99-107); CREATININE 1.09 MG/DL (0.40-0.90); GLUCOSE 151 MG/DL (70-104); POTASSIUM 3.7 MMOL/L (3.5-5.1); SODIUM 136 MMOL/L (135-145); TOTAL PROTEIN 7.3 G/DL (6.4-8.2); eCRCL 46 ML/MIN; eGFR 50 ML/MIN
[2023-04-30 14:24] LABS: CHOL/HDL RATIO 2.2 (0.00-4.99); CHOLESTEROL 182 MG/DL (0-200); HDL CHOLESTEROL 81 MG/DL (35-60); LDL CHOLESTEROL 81 MG/DL (50-100); TRIGLYCERIDES 65 MG/DL (20-135)
--- NOTE | 2023-04-30 16:00 | NUR ---
patient placed on RA after working with PT, o2 saturations greater than 90% on RA. will continue to monitor oxygen. patient up in chair for supper, eating ind Addendum: 04/30/23 at 1800 by Harriet Thomas RN RN checked patients o2 sats while patient up in chair, 88% on Ra. placed on 2L with O2 at 90%. patient had wet/junky cough and was able to cough up/clear secretions with help of suction. O2 sats came up to 94-96% on 2L
[2023-04-30] MEDS: valacyclovir 500mg tablet PO SCH ×2 (16:41→23:30)
--- NOTE | 2023-04-30 16:53 | NUR ---
Charting by Ina FLORSE reviewed by Thalia Frausto RN
--- NOTE | 2023-04-30 18:15 | NUR ---
Problems reprioritized. Patient report given, questions answered & plan of care reviewed with delmer ROGERS.
--- NOTE | 2023-04-30 18:30 | NUR ---
Patient in room ORTHO 4017. I have received report from Harriet ROGERS and had the opportunity to ask questions and assume patient care.
[2023-04-30] MEDS: buprenorphine/naloxone 8MG-2MG SUBlingual film SL SCH (18:35)
[2023-04-30] MEDS: temazepam 15mg capsule PO PRN (21:02)
--- NOTE | 2023-04-30 22:00 | NUR ---
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 Addendum: 05/01/23 at 0344 by Natalie Nick RN Amended: Links added.
[2023-05-01] VITALS (10 sets, daily range): BP systolic 120–162; BP diastolic 55–91; PULSE 65–83; RESP 14–22; TEMP 98.1–98.6; O2SAT 92–99
[2023-05-01] MEDS: temazepam 15mg capsule PO PRN ×2 (00:54→22:42)
--- NOTE | 2023-05-01 02:24 | NUR ---
Pt gave me permission to talk to her daughter, Francia Rosenthal regarding her care and tests that have been done.
--- NOTE | 2023-05-01 02:28 | NUR ---
I called her daughter Francia Rosenthal at phone number [phone] to let her know that she had a swallow eval done and is eating pureed diet and thick liquids and she had a MRI/MRA/echo and CU done. This daughter is a nurse per patient.
[2023-05-01] MEDS: normal saline 1000ml 1,000 ML IV SCH ×2 (04:02→17:16)
[2023-05-01 06:53] LABS: BASOPHILS % (AUTO) 0.1 % (0-1); EOSINOPHILS % (AUTO) 0 % (0-6); HEMATOCRIT 34.8 % (35.0-45.0); HEMOGLOBIN 11.7 g/dl (12.0-16.0); LYMPHOCYTES # (AUTO) 0.8 X10'3 (1.1-4.8); LYMPHOCYTES % (AUTO) 7.9 % (21-51); MEAN CORPUSCULAR HEMOGLOBIN 30.4 PG (27.0-31.0); MEAN CORPUSCULAR HGB CONC 33.6 g/dL (33.0-36.5); MEAN CORPUSCULAR VOLUME 90.4 FL (78-98); MEAN PLATELET VOLUME 11.5 FL (7.4-10.4); MONOCYTES # (AUTO) 0.4 X10'3 (0-0.9); MONOCYTES % (AUTO) 3.5 % (2-12); NEUTROPHILS # (AUTO) 8.9 X10'3 (1.8-7.7); NEUTROPHILS % (AUTO) 88.5 % (42-75); PLATELET COUNT 167 X10'3 (140-440); RED BLOOD COUNT 3.85 X10'6 (4.20-5.60); RED CELL DISTRIBUTION WIDTH 14.3 % (11.5-14.5); WHITE BLOOD COUNT 10.1 X10'3 (4.5-11.0)
[2023-05-01 07:00] LABS: ALANINE AMINOTRANSFERASE 14 U/L (12-78); ALBUMIN 2.8 G/DL (3.4-5.0); ALBUMIN/GLOBULIN RATIO 0.8 (1.1-1.5); ALKALINE PHOSPHATASE 61 IU/L (46-116); ANION GAP 10 (8-16); ASPARTATE AMINO TRANSFERASE 16 U/L (10-37); BILIRUBIN,TOTAL 0.3 MG/DL (0.1-1.0); BLOOD UREA NITROGEN 30 MG/DL (7-18); BUN/CREATININE RATIO 34.1 (10.0-20.0); CALCIUM 8.3 MG/DL (8.5-10.1); CHLORIDE 104 MMOL/L (99-107); CREATININE 0.88 MG/DL (0.40-0.90); GLUCOSE 131 MG/DL (70-104); POTASSIUM 3.7 MMOL/L (3.5-5.1); SODIUM 139 MMOL/L (135-145); TOTAL CARBON DIOXIDE 25.4 MMOL/L (24-32); TOTAL PROTEIN 6.4 G/DL (6.4-8.2); eCRCL 57 ML/MIN; eGFR 64 ML/MIN
--- NOTE | 2023-05-01 07:25 | NUR ---
Problems reprioritized. Patient report given, questions answered & plan of care reviewed with Alycia ROGERS.
[2023-05-01] MEDS ORDERED: pantoprazole 40MG/NS 100ML BAG 100 ML IV SCH (08:00)
[2023-05-01] MEDS: ipratropium/albuterol 3ml nebule NEB PRN (08:40)
[2023-05-01] MEDS: budesonide 0.5mg/2ml UD nebule IH SCH (08:40)
[2023-05-01] MEDS: atorvastatin 20mg tablet PO SCH (09:03)
[2023-05-01] MEDS: valacyclovir 500mg tablet PO SCH ×2 (09:03→16:03)
[2023-05-01] MEDS: docusate sod 100mg capsule PO SCH ×2 (09:03→22:38)
[2023-05-01] MEDS: HYDROchlorothiazide 12.5mg capsule PO SCH (09:03)
[2023-05-01] MEDS: aspirin 81mg tab.chew PO SCH (09:03)
[2023-05-01] MEDS: buprenorphine/naloxone 8MG-2MG SUBlingual film SL SCH (09:04)
[2023-05-01] MEDS: losartan 50mg tablet PO SCH (09:04)
[2023-05-01] MEDS: nicotine 21mg patch - 24 hr TD SCH (09:05)
[2023-05-01] MEDS: methylPREDNISolone sod succ/PF 40mg inj. IV SCH ×3 (09:05→22:38)
[2023-05-01] MEDS: pantoprazole 40mg Tablet.DR PO SCH (09:12)
--- NOTE | 2023-05-01 09:31 | NUR ---
Malnutrition consult: Pt unsure of wt loss though reports decreased appetite/PO intake per malnutrition risk screen with RN. Current scaled weight is stable with wt hx back to 09/06/13 per EMR with very minimal fluctuations (58.64-60.7 kg). Pt currently on a pureed diet with honey thick liquids per ST recs and eating fairly well, documented with 50-75% PO intake which is sufficient to meet estimated nutrient needs. Pt with no documented significant decrease in muscle strength or edema. Per H&P pt well developed well nourished. Pt currently lacks a minimum of two criteria for malnutrition though will continue to follow and monitor s/s malnutrition. Addendum: 05/01/23 at [address] Amended: Links added.
[2023-05-01] MEDS: clopidogrel 75mg tablet PO SCH (14:23)
[2023-05-01] MEDS: furosemide 20MG tablet PO SCH (14:23)
--- NOTE | 2023-05-01 15:59 | NUR ---
Agree with assessment by Leeann Rodriguez Student Nurse
--- NOTE | 2023-05-01 18:26 | NUR ---
Problems reprioritized. Patient report given, questions answered & plan of care reviewed with
--- NOTE | 2023-05-01 19:00 | NUR ---
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 Addendum: 05/02/23 at 0406 by Jennifer Tate RN Amended: Links added.
[2023-05-02] VITALS (8 sets, daily range): BP systolic 128–147; BP diastolic 68–85; PULSE 68–84; RESP 14–24; TEMP 97.6–98.2; O2SAT 91–98
[2023-05-02] MEDS: valacyclovir 500mg tablet PO SCH ×3 (01:28→16:35)
[2023-05-02] MEDS: normal saline 1000ml 1,000 ML IV SCH ×2 (05:27→23:59)
--- NOTE | 2023-05-02 06:26 | NUR ---
Patient in room ORTHO 4017. I have received report from Jennifer and had the opportunity to ask questions and assume patient care.
--- NOTE | 2023-05-02 06:58 | NUR ---
Problems reprioritized. Patient report given, questions answered & plan of care reviewed with NASRIN ROGERS.
[2023-05-02] MEDS: ipratropium/albuterol 3ml nebule NEB PRN (08:16)
[2023-05-02] MEDS: budesonide 0.5mg/2ml UD nebule IH SCH (08:16)
[2023-05-02] MEDS: losartan 50mg tablet PO SCH (08:48)
[2023-05-02] MEDS: aspirin 81mg tab.chew PO SCH (08:48)
[2023-05-02] MEDS: clopidogrel 75mg tablet PO SCH (08:49)
[2023-05-02] MEDS: methylPREDNISolone sod succ/PF 40mg inj. IV SCH ×3 (08:49→21:00)
[2023-05-02] MEDS: pantoprazole 40mg Tablet.DR PO SCH (08:49)
[2023-05-02] MEDS: atorvastatin 20mg tablet PO SCH (08:50)
[2023-05-02] MEDS: furosemide 20MG tablet PO SCH (08:50)
[2023-05-02] MEDS: docusate sod 100mg capsule PO SCH ×2 (08:50→19:11)
[2023-05-02] MEDS: HYDROchlorothiazide 12.5mg capsule PO SCH (08:50)
[2023-05-02] MEDS: nicotine 21mg patch - 24 hr TD SCH (08:51)
[2023-05-02] MEDS: buprenorphine/naloxone 8MG-2MG SUBlingual film SL SCH (08:51)
[2023-05-02 09:31] LABS: BASOPHILS % (AUTO) 0 % (0-1); EOSINOPHILS % (AUTO) 0 % (0-6); HEMATOCRIT 40.1 % (35.0-45.0); HEMOGLOBIN 13.1 g/dl (12.0-16.0); LYMPHOCYTES # (AUTO) 0.7 X10'3 (1.1-4.8); LYMPHOCYTES % (AUTO) 6.6 % (21-51); MEAN CORPUSCULAR HEMOGLOBIN 30.2 PG (27.0-31.0); MEAN CORPUSCULAR HGB CONC 32.6 g/dL (33.0-36.5); MEAN CORPUSCULAR VOLUME 92.6 FL (78-98); MEAN PLATELET VOLUME 12.1 FL (7.4-10.4); MONOCYTES # (AUTO) 0.3 X10'3 (0-0.9); MONOCYTES % (AUTO) 3.1 % (2-12); NEUTROPHILS # (AUTO) 9.9 X10'3 (1.8-7.7); NEUTROPHILS % (AUTO) 90.3 % (42-75); PLATELET COUNT 202 X10'3 (140-440); RED BLOOD COUNT 4.33 X10'6 (4.20-5.60); RED CELL DISTRIBUTION WIDTH 14.3 % (11.5-14.5)
[2023-05-02 09:33] LABS: ALANINE AMINOTRANSFERASE 14 U/L (12-78); ALBUMIN/GLOBULIN RATIO 0.7 (1.1-1.5); ALKALINE PHOSPHATASE 68 IU/L (46-116); ANION GAP 10 (8-16); ASPARTATE AMINO TRANSFERASE 12 U/L (10-37); BILIRUBIN,TOTAL 0.3 MG/DL (0.1-1.0); BLOOD UREA NITROGEN 37 MG/DL (7-18); BUN/CREATININE RATIO 35.6 (10.0-20.0); CALCIUM 8.3 MG/DL (8.5-10.1); CHLORIDE 101 MMOL/L (99-107); CREATINE KINASE 42 U/L (26-192); CREATININE 1.04 MG/DL (0.40-0.90); GLUCOSE 142 MG/DL (70-104); POTASSIUM 3.9 MMOL/L (3.5-5.1); SODIUM 137 MMOL/L (135-145); TOTAL CARBON DIOXIDE 26.3 MMOL/L (24-32); TOTAL PROTEIN 7.1 G/DL (6.4-8.2); eCRCL 48 ML/MIN; eGFR 53 ML/MIN
[2023-05-02] MEDS: HYDROcodone/acetaminophen 5mg/325mg tablet PO PRN ×2 (13:33→19:11)
--- NOTE | 2023-05-02 18:51 | NUR ---
Problems reprioritized. Patient report given, questions answered & plan of care reviewed with
--- NOTE | 2023-05-02 20:00 | NUR ---
HX OF BLINDNESS IN L EYE Addendum: 05/03/23 at 0000 by Jennifer Tate RN Amended: Links added.
[2023-05-02] MEDS: temazepam 15mg capsule PO PRN (23:11)
[2023-05-03] MEDS: methylPREDNISolone sod succ/PF 40mg inj. IV SCH ×3 (00:52→17:23)
[2023-05-03 06:00] VITALS: BP 156/69; PULSE 60; RESP 14; TEMP 97.9; O2SAT 94
--- NOTE | 2023-05-03 06:05 | NUR ---
received report from efren valdes
--- NOTE | 2023-05-03 06:07 | NUR ---
Problems reprioritized. Patient report given, questions answered & plan of care reviewed with MELA ROGERS.
[2023-05-03 08:00] VITALS: RESP 16; O2SAT 95
[2023-05-03] MEDS: HYDROcodone/acetaminophen 5mg/325mg tablet PO PRN ×4 (08:01→17:28)
[2023-05-03] MEDS: atorvastatin 20mg tablet PO SCH (08:02)
[2023-05-03] MEDS: valacyclovir 500mg tablet PO SCH ×3 (08:02→16:06)
[2023-05-03] MEDS: docusate sod 100mg capsule PO SCH ×2 (08:02→20:10)
[2023-05-03] MEDS: aspirin 81mg tab.chew PO SCH (08:02)
[2023-05-03] MEDS: furosemide 20MG tablet PO SCH (08:02)
[2023-05-03] MEDS: pantoprazole 40mg Tablet.DR PO SCH (08:03)
[2023-05-03] MEDS: clopidogrel 75mg tablet PO SCH (08:03)
[2023-05-03] MEDS: HYDROchlorothiazide 12.5mg capsule PO SCH (08:04)
[2023-05-03] MEDS: nicotine 21mg patch - 24 hr TD SCH (08:04)
[2023-05-03] MEDS: buprenorphine/naloxone 8MG-2MG SUBlingual film SL SCH (08:04)
[2023-05-03] MEDS: losartan 50mg tablet PO SCH (08:09)
[2023-05-03 10:00] VITALS: BP 107/67; PULSE 82; RESP 18; TEMP 97.9; O2SAT 95
--- NOTE | 2023-05-03 10:24 | NUR ---
NURSE ACCIDENTLY CLICKED ON THE 1 NORCO AND THE 2 NORCO FOR THE MEDICATION ADMINISTRATION THIS MORNING, I TOOK 2 NORCOS OUT THIS MORNING FOR THIS NURSE TO ADMIN 2 NORCOS FOR THIS PATIENT, CONTINUE TO MONITOR
[2023-05-03 10:34] LABS: BASOPHILS % (AUTO) 0.1 % (0-1); EOSINOPHILS % (AUTO) 0 % (0-6); HEMATOCRIT 39.4 % (35.0-45.0); HEMOGLOBIN 13.1 g/dl (12.0-16.0); LYMPHOCYTES # (AUTO) 0.8 X10'3 (1.1-4.8); LYMPHOCYTES % (AUTO) 7.5 % (21-51); MEAN CORPUSCULAR HEMOGLOBIN 30.5 PG (27.0-31.0); MEAN CORPUSCULAR HGB CONC 33.3 g/dL (33.0-36.5); MEAN CORPUSCULAR VOLUME 91.5 FL (78-98); MEAN PLATELET VOLUME 11.6 FL (7.4-10.4); MONOCYTES # (AUTO) 0.6 X10'3 (0-0.9); MONOCYTES % (AUTO) 5.5 % (2-12); NEUTROPHILS # (AUTO) 9.5 X10'3 (1.8-7.7); NEUTROPHILS % (AUTO) 86.9 % (42-75); PLATELET COUNT 219 X10'3 (140-440); RED BLOOD COUNT 4.31 X10'6 (4.20-5.60); WHITE BLOOD COUNT 10.9 X10'3 (4.5-11.0)
[2023-05-03 10:35] LABS: ALANINE AMINOTRANSFERASE 10 U/L (12-78); ALBUMIN 2.8 G/DL (3.4-5.0); ALBUMIN/GLOBULIN RATIO 0.8 (1.1-1.5); ALKALINE PHOSPHATASE 60 IU/L (46-116); ANION GAP 9 (8-16); ASPARTATE AMINO TRANSFERASE 13 U/L (10-37); BILIRUBIN,TOTAL 0.3 MG/DL (0.1-1.0); BLOOD UREA NITROGEN 40 MG/DL (7-18); BUN/CREATININE RATIO 39.6 (10.0-20.0); CALCIUM 8.3 MG/DL (8.5-10.1); CHLORIDE 100 MMOL/L (99-107); CREATININE 1.01 MG/DL (0.40-0.90); GLUCOSE 108 MG/DL (70-104); POTASSIUM 3.4 MMOL/L (3.5-5.1); SODIUM 136 MMOL/L (135-145); TOTAL CARBON DIOXIDE 27.5 MMOL/L (24-32); TOTAL PROTEIN 6.5 G/DL (6.4-8.2); eCRCL 49 ML/MIN; eGFR 55 ML/MIN
[2023-05-03] MEDS: budesonide 0.5mg/2ml UD nebule IH SCH (10:36)
[2023-05-03] MEDS ORDERED: GADOTERATE MEGLUMINE 7.5 MMOL/15 ML VIAL IV ONE (11:12)
[2023-05-03] MEDS: normal saline 1000ml 1,000 ML IV SCH (14:34)
[2023-05-03 17:36] VITALS: BP 122/86; PULSE 75; RESP 18; TEMP 98.7
--- NOTE | 2023-05-03 18:07 | NUR ---
gave report to efren francisco
[2023-05-03 19:48] VITALS: PULSE 69; RESP 16; O2SAT 93
[2023-05-03] MEDS: enoxaparin 40mg/0.4ml syringe SUBCUT SCH (20:11)
[2023-05-03 22:00] VITALS: BP 147/79; PULSE 73; RESP 15; TEMP 98.3; O2SAT 95
[2023-05-03] MEDS: temazepam 15mg capsule PO PRN (22:31)
[2023-05-04] VITALS (9 sets, daily range): BP systolic 115–161; BP diastolic 70–82; PULSE 68–84; RESP 14–19; TEMP 97.4–98.6; O2SAT 90–97
[2023-05-04] MEDS: valacyclovir 500mg tablet PO SCH ×3 (00:08→15:56)
[2023-05-04] MEDS: methylPREDNISolone sod succ/PF 40mg inj. IV SCH ×3 (00:16→15:56)
--- NOTE | 2023-05-04 00:45 | NUR ---
Patient in room ORTHO 4017. I have received report from ED and had the opportunity to ask questions and assume patient care. PT RESTING AT THIS TIME
--- NOTE | 2023-05-04 07:08 | NUR ---
Problems reprioritized. Patient report given, questions answered & plan of care reviewed with AQUILINO.
[2023-05-04] MEDS: budesonide 0.5mg/2ml UD nebule IH SCH (08:23)
[2023-05-04] MEDS: HYDROcodone/acetaminophen 5mg/325mg tablet PO PRN ×3 (08:42→22:03)
[2023-05-04] MEDS: buprenorphine/naloxone 8MG-2MG SUBlingual film SL SCH (08:43)
[2023-05-04] MEDS: nicotine 21mg patch - 24 hr TD SCH (08:45)
[2023-05-04] MEDS: aspirin 81mg tab.chew PO SCH (08:46)
[2023-05-04] MEDS: furosemide 20MG tablet PO SCH (08:46)
[2023-05-04] MEDS: HYDROchlorothiazide 12.5mg capsule PO SCH (08:47)
[2023-05-04] MEDS: atorvastatin 20mg tablet PO SCH (08:48)
[2023-05-04] MEDS: clopidogrel 75mg tablet PO SCH (08:48)
[2023-05-04] MEDS: pantoprazole 40mg Tablet.DR PO SCH (08:48)
[2023-05-04] MEDS: docusate sod 100mg capsule PO SCH ×2 (08:49→22:00)
[2023-05-04] MEDS: losartan 50mg tablet PO SCH (08:50)
[2023-05-04] MEDS: normal saline 1000ml 1,000 ML IV SCH ×2 (09:52→15:59)
--- NOTE | 2023-05-04 11:35 | NUR ---
md and resident were made aware of lab not being able to get blood draw on pt. per md he said if lab unable to draw, pt does not need labs today and he was not concerned right now about her k of 3.4 from yesterday 05/03 that had not been rechecked. no redraw needed at this time per md.
--- NOTE | 2023-05-04 14:06 | NUR ---
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 Pt has been on pureed nectar thick liquids per CUSTOMER COMPLAINT SERVICE SUPERVISOR since 04/30 with an average PO intake of ~67% x 11 meals which met ~100% of estimated kcal and ~100% of estimated protein needs. Pt now advanced to minced and moist diet per CUSTOMER COMPLAINT SERVICE SUPERVISOR; pending PO intake on new diet texture. LBM on 05/02 per EMR. Will continue to monitor and make recommendations as appropriate. Recommendations: 1.continue minced and moist thin liquid diet per CUSTOMER COMPLAINT SERVICE SUPERVISOR 2.if PO intake declines monitor need for ONS 3.routine bowel care 4.weekly scaled wt Addendum: 05/04/23 at [address] Amended: Links added.
[2023-05-04] MEDS: enoxaparin 40mg/0.4ml syringe SUBCUT SCH (22:03)
[2023-05-04] MEDS: temazepam 15mg capsule PO PRN (22:09)
[2023-05-05] MEDS: methylPREDNISolone sod succ/PF 40mg inj. IV SCH ×3 (00:59→17:21)
[2023-05-05] MEDS: valacyclovir 500mg tablet PO SCH ×3 (00:59→17:21)
[2023-05-05] MEDS: normal saline 1000ml 1,000 ML IV SCH ×2 (02:13→18:39)
--- NOTE | 2023-05-05 03:26 | NUR ---
Problems reprioritized. Patient report given, questions answered & plan of care reviewed with angelica schwartz.
--- NOTE | 2023-05-05 03:33 | NUR ---
Patient in room ORTHO 4017. I have received report from Martín and had the opportunity to ask questions and assume patient care.
[2023-05-05] MEDS: HYDROcodone/acetaminophen 5mg/325mg tablet PO PRN ×2 (05:25→10:02)
[2023-05-05 06:00] VITALS: BP 167/82; PULSE 58; RESP 16; TEMP 98; O2SAT 4
--- NOTE | 2023-05-05 06:28 | NUR ---
Problems reprioritized. Patient report given, questions answered & plan of care reviewed with Rhoda.
[2023-05-05] MEDS: HYDROchlorothiazide 12.5mg capsule PO SCH (08:28)
[2023-05-05] MEDS: atorvastatin 20mg tablet PO SCH (08:28)
[2023-05-05] MEDS: aspirin 81mg tab.chew PO SCH (08:28)
[2023-05-05] MEDS: losartan 50mg tablet PO SCH (08:28)
[2023-05-05] MEDS: buprenorphine/naloxone 8MG-2MG SUBlingual film SL SCH (08:28)
[2023-05-05] MEDS: furosemide 20MG tablet PO SCH (08:29)
[2023-05-05] MEDS: docusate sod 100mg capsule PO SCH ×2 (08:29→20:00)
[2023-05-05] MEDS: pantoprazole 40mg Tablet.DR PO SCH (08:29)
[2023-05-05] MEDS: clopidogrel 75mg tablet PO SCH (08:29)
[2023-05-05] MEDS: nicotine 21mg patch - 24 hr TD SCH (08:30)
[2023-05-05] MEDS: budesonide 0.5mg/2ml UD nebule IH SCH (08:40)
[2023-05-05 08:41] VITALS: PULSE 94; RESP 16; O2SAT 96
[2023-05-05 08:42] VITALS: PULSE 70; RESP 16
[2023-05-05] MEDS ORDERED: iohexol 300mg/ml 100ml inj. ONE (12:58)
[2023-05-05] MEDS: HYDROcodone/acetaminophen 10/325mg tab PO PRN ×2 (17:21→23:17)
[2023-05-05 18:00] VITALS: BP 142/72; PULSE 68; RESP 16; TEMP 98.3; O2SAT 99
[2023-05-05] MEDS: enoxaparin 40mg/0.4ml syringe SUBCUT SCH (19:27)
[2023-05-05 22:00] VITALS: BP 142/72; PULSE 74; RESP 18; TEMP 97.9; O2SAT 94
[2023-05-05 23:16] VITALS: PULSE 97; RESP 16; O2SAT 93
[2023-05-05] MEDS: temazepam 15mg capsule PO PRN (23:17)
--- NOTE | 2023-05-06 00:15 | NUR ---
AGREE WITH NURSES ASSESSMENT. Addendum: 05/06/23 at 0016 by Amy Lindsey RN Amended: Links added.
[2023-05-06] MEDS: methylPREDNISolone sod succ/PF 40mg inj. IV SCH ×2 (00:38→08:43)
[2023-05-06] MEDS: valacyclovir 500mg tablet PO SCH ×2 (03:02→07:39)
[2023-05-06] MEDS: HYDROcodone/acetaminophen 10/325mg tab PO PRN (03:43)
[2023-05-06 06:00] VITALS: BP 146/93; PULSE 89; RESP 20; TEMP 98; O2SAT 95
--- NOTE | 2023-05-06 06:28 | NUR ---
Patient in room ORTHO 4017. I have received report from pieter pierre and had the opportunity to ask questions and assume patient care.
[2023-05-06] MEDS: atorvastatin 20mg tablet PO SCH (07:37)
[2023-05-06] MEDS: nicotine 21mg patch - 24 hr TD SCH (07:38)
[2023-05-06] MEDS: HYDROchlorothiazide 12.5mg capsule PO SCH (07:38)
[2023-05-06] MEDS: clopidogrel 75mg tablet PO SCH (07:39)
[2023-05-06] MEDS: furosemide 20MG tablet PO SCH (07:40)
[2023-05-06] MEDS: losartan 50mg tablet PO SCH (07:41)
[2023-05-06] MEDS: docusate sod 100mg capsule PO SCH (07:41)
[2023-05-06] MEDS: pantoprazole 40mg Tablet.DR PO SCH (07:42)
[2023-05-06] MEDS: buprenorphine/naloxone 8MG-2MG SUBlingual film SL SCH (07:47)
[2023-05-06] MEDS: normal saline 1000ml 1,000 ML IV SCH (07:59)
[2023-05-06] MEDS: aspirin 81mg tab.chew PO SCH (08:43)
[2023-05-06] MEDS: HYDROcodone/acetaminophen 5mg/325mg tablet PO PRN (08:44)
[2023-05-06] MEDS: budesonide 0.5mg/2ml UD nebule IH SCH (08:44)
[2023-05-06] MEDS: ipratropium/albuterol 3ml nebule NEB PRN (08:45)
[2023-05-06 08:47] VITALS: PULSE 90; RESP 16; O2SAT 96
[2023-05-06 08:53] VITALS: PULSE 76; RESP 16
--- NOTE | 2023-05-06 08:58 | NUR ---
Page Sent PAGER ID: [phone] MESSAGE: [phone] meghan, pt iv went bad do you want her to have another for transfer.... [phone]
--- NOTE | 2023-05-06 09:00 | NUR ---
pt declined MOM she stated she will talk with nurse/ deal with that when she gets to [facility] due to long ride, i did let [facility] nurse know of last recorded bm as 05/02 and pt wasn't sure if she had one yesterday or not which was given in report. she did take her Colace.
--- NOTE | 2023-05-06 09:10 | NUR ---
let know pt hadn't had any new labs since 05/03 and abnormals from last draw. is aware and ok with this.
--- NOTE | 2023-05-06 09:11 | NUR ---
paged picc, pt is a hard stick.
--- NOTE | 2023-05-06 09:13 | NUR ---
Problems reprioritized. Patient report given, questions answered & plan of care reviewed with alfie schwartz with [facility].
[2023-05-06 10:00] VITALS: BP 146/88; PULSE 85; RESP 19; TEMP 98; O2SAT 98
--- NOTE | 2023-05-06 11:30 | NUR ---
pt room is close to nurses station received a call from family that she was sitting on the floor needed some help up, went into the room pt was just sitting on the floor talking, she had blood on her arm from pulling out an iv, pt said she had went to grab her phone and she had slid out of bed and sat on the floor. she stated she did not hit her head or any part of her body. she just had a seated position on the floor to grab her phone that must have dropped. I grabbed another employee and helped pt back up to bed to get her cleaned up, she is awaiting transfer to another facility. last time i was in pts room bed alarm was set at around 11 am. no complaints. charge, plumber supervisor, and md/resident were notified Addendum: 05/06/23 at 1235 by Martín Chaudhari RN pt room is close to nurses station received a call from family that she was sitting on the floor needed some help up, went into the room pt was just sitting on the floor talking, she had blood on her arm from pulling out an iv, pt said she had went to grab her phone and she had slid out of bed and sat on the floor. she stated she did not hit her head or any part of her body. she just had a seated position on the floor to grab her phone that must have dropped. I grabbed another employee and helped pt back up to bed to get her cleaned up, she is awaiting transfer to another facility. last time i was in pts room bed alarm was set at around 11 am. no complaints. charge, plumber supervisor, and md/resident were notified. vitals post fall 97.0 T, bp 155/95, HR 64, rr 15, 2L NC 98%
--- NOTE | 2023-05-06 11:50 | NUR ---
called resident/md and informed them of pts fall. no injury
--- NOTE | 2023-05-06 12:00 | NUR ---
resident came to see pt and she is ok for transfer.
[2023-05-06] MEDS ORDERED: GADOTERATE MEGLUMINE 7.5 MMOL/15 ML VIAL IV ONE (12:29)
--- NOTE | 2023-05-06 13:07 | NUR ---
pt is stable for dc, packet was given to brianda with [facility] as well as packet and report, no meds in pharmacy, all belongings taken with pt, pt had an extended/ midline for flight transfer to [facility] due to other IV not working, pt was wheeled out by [facility] and [facility] personnel to be flown down to [facility] for transfer.
== END 2023-05-06 12:25 | disposition short-term general hospital (02) | DRG 64 ==
LOC: ER 19:55 → ED HOLD 04-29 00:12 → ORTHO 4S 04-29 19:55
PROVIDERS: ADMIT Family Medicine; ATTEND Internal Medicine
PROC: BW251ZZ Computerized Tomography (CT Scan) of Chest, Abdomen and Pelvis using Low Osmolar Contrast (ICD-10-PCS; principal; 2023-05-05)
DX: I63.511 Cerebral infarction due to unspecified occlusion or stenosis of right middle cerebral artery (principal); J96.01 Acute respiratory failure with hypoxia; C71.7 Malignant neoplasm of brain stem; I50.22 Chronic systolic (congestive) heart failure; I13.0 Hypertensive heart and chronic kidney disease with heart failure and stage 1 through stage 4 chronic kidney disease, or unspecified chronic kidney disease; N17.9 Acute kidney failure, unspecified; R65.10 Systemic inflammatory response syndrome (SIRS) of non-infectious origin without acute organ dysfunction; I63.9 Cerebral infarction, unspecified; E78.5 Hyperlipidemia, unspecified; J44.9 Chronic obstructive pulmonary disease, unspecified; Z20.822 Contact with and (suspected) exposure to COVID-19; G89.4 Chronic pain syndrome; M54.9 Dorsalgia, unspecified; F19.10 Other psychoactive substance abuse, uncomplicated; E86.1 Hypovolemia; F17.210 Nicotine dependence, cigarettes, uncomplicated; N18.9 Chronic kidney disease, unspecified; Z85.3 Personal history of malignant neoplasm of breast; Z90.49 Acquired absence of other specified parts of digestive tract; Z79.899 Other long term (current) drug therapy; Z95.820 Peripheral vascular angioplasty status with implants and grafts
CPT/HCPCS: 36415; 70450; 70544; 70551; 70553; 71045; 71260; 73030; 74177; 80053; 80061; 80305; 80320; 81001; 82550; 82948; 83036; 83605; 83880; 84100; 84145; 84484; 85008; 85025; 85610; 85730; 87040; 87081; 87811; 92508; 92616; 93308; 93880; 94640; 94760; 97116; 97161; 97530; 99285; A4615; A6212; A6222; A6258; A9575; C9113; G0378; J1650; J2270; J2405; J2920; J3490; J7030; Q9967